=== PATIENT | male | born 1985 | race Caucasian/White ===

== ENCOUNTER 2016-09-03 12:21 | Emergency (ER) | payer OTHER ==
[~2016-09-03] VITALS: Ht 177.8 cm; Wt 63.5 kg
[~2016-09-03 12:21] MED LIST: ARIP2 PO; BACT800T5 PO
[2016-09-03 12:22] VITALS: BP 134/78; PULSE 72; RESP 15; TEMP 98; O2SAT 98
[2016-09-03] MEDS ORDERED: SODIUM CHLORIDE 0.9% FLUSH 10 ML FLUSH IVF PRN (12:45)
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
[2016-09-03] MEDS ORDERED: IOHEXOL 350 MG/ML 10 ML VIAL (for RAD DIAG) IV ONE (13:41)
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
== END 2016-09-03 14:14 | disposition home or self-care (01) ==
LOC: NEPD 12:21
DX: S30.1XXA Contusion of abdominal wall, initial encounter (principal); V89.2XXA Person injured in unspecified motor-vehicle accident, traffic, initial encounter
CPT/HCPCS: 74177; 99284; Q9967

== ENCOUNTER 2017-07-14 18:38 | Emergency (ER) | payer SELFPAY ==
[~2017-07-14] VITALS: Ht 177.8 cm; Wt 60.0 kg
[2017-07-14 18:42] VITALS: BP 134/94; PULSE 94; RESP 16; TEMP 98.6; O2SAT 98
[2017-07-14] MEDS ORDERED: DIAZ5TAB PO (18:46)
[2017-07-14] MEDS ORDERED: VENTAER INH (18:55)
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
[2017-07-14 20:42] VITALS: BP 117/68; PULSE 67; RESP 16; O2SAT 94
[2017-07-14] MEDS ORDERED: NALOXONE HCL 0.4 MG/ML AMP IV PUSH PRN (22:00)
== END 2017-07-14 23:47 | disposition home or self-care (01) ==
LOC: NEPC 18:38
DX: T40.1X4A Poisoning by heroin, undetermined, initial encounter (principal); F12.90 Cannabis use, unspecified, uncomplicated; Z72.0 Tobacco use
CPT/HCPCS: 96374; 99284; J2310